=== PATIENT | female | born 1980 | race Caucasian/White ===

== ENCOUNTER 2022-03-03 11:50 | Inpatient (IN) | payer OTHER ==
[2022-03-03] MEDS ORDERED: CITRIC ACID/SODIUM CITRATE 30 ML UNIT-DOSE CUP PO ONE (13:07)
[2022-03-03] MEDS ORDERED: ELECTROLYTE-148 SOLN 1,000 ML IV SCH ×2 (13:15)
[2022-03-03 13:39] VITALS: BMI 23.5
[2022-03-03 14:09] LABS: BASO % 0.4 % (0-2.0); EOS % 0.8 % (0-4.5); HEMATOCRIT 33.9 % (32.4-45.2); MCH 30.7 pg (25.7-33.7); MCHC 35.4 g/dl (32.0-36.0); MEAN CELL VOLUME 86.7 fl (80-96); MONO % 6.9 % (3.8-10.2); NEUT % 75.9 % (42.8-82.8); PLATELET COUNT 212 10^3/uL (134-434); RBC 3.91 M/mm3 (3.60-5.2); RDW 13.9 % (11.6-15.6); WHITE BLOOD COUNT 9.2 K/mm3 (4.0-10.0)
[2022-03-03 14:15] LABS: INR 0.9 (0.83-1.09); PROTHROMBIN TIME (PATIENT) 10.3 SEC (9.7-13.0)
[2022-03-03 14:18] LABS: ACTIVATED PTT 24.9 SECONDS (25.2-36.5)
[2022-03-03 14:42] LABS: BLOOD UREA NITROGEN 10.9 mg/dL (7-18); CALCIUM 9.1 mg/dL (8.5-10.1); CREATININE 0.4 mg/dL (0.55-1.3)
[2022-03-03] MEDS ORDERED: ACETAMINOPHEN INJECTION 100 ML IVPB ONE (16:10)
[2022-03-03] MEDS ORDERED: OXYTOCIN 20 UNITS in 0.9% NS 20 UNIT/1,000 ML INFUS.BAG IV ONE (16:10)
[2022-03-03] MEDS ORDERED: ceFAZolin SODIUM 1 GM VIAL ONE (16:12)
[2022-03-03] MEDS ORDERED: PHENYLEPHRINE HCL 10 MG/1 ML SINGLE DOSE VIAL ONE (16:12)
[2022-03-03] MEDS ORDERED: ePHEDrine SULFATE 50 MG/1 ML AMPULE ONE (16:12)
[2022-03-03] MEDS ORDERED: OXYTOCIN 10 UNITS/ML VIAL ONE (16:37)
[2022-03-03] MEDS ORDERED: IBUPROFEN 600 MG TABLET (FP) PO PRN (16:40)
[2022-03-03] MEDS ORDERED: ACETAMINOPHEN 1000 MG/100 ML BAG IVPB PRN (16:40)
[2022-03-03] MEDS ORDERED: SENNOSIDES/DOCUSATE COMBO (SENNA PLUS) TABLET (UD) PO PRN (16:40)
[2022-03-03] MEDS ORDERED: IBUPROFEN 800 MG/8 ML IJ IVPB PRN (16:40)
[2022-03-03] MEDS ORDERED: ONDANSETRON 4 MG/2 ML VIAL IVPB PRN (16:40)
[2022-03-03] MEDS ORDERED: ACETAMINOPHEN 325 MG TABLET (FP) PO PRN (16:40)
[2022-03-03] MEDS ORDERED: oxyCODONE HCL 5 MG TABLET PO PRN (16:40)
[2022-03-03] MEDS ORDERED: WITCH HAZEL 50% (TUCKS) 40 PAD/JAR PAD TP PRN (16:40)
[2022-03-03] MEDS ORDERED: OXYTOCIN 20 UNITS in 0.9% NS 20 UNIT/1,000 ML INFUS.BAG IV SCH (16:45)
[2022-03-03] MEDS: IBUPROFEN 800 MG/8 ML IJ IVPB PRN (22:40)
[2022-03-03] MEDS: SIMETHICONE 80 MG TAB.CHEW (FP) PO PRN (22:40)
[2022-03-04] MEDS: ACETAMINOPHEN 1000 MG/100 ML BAG IVPB PRN ×2 (03:15→12:01)
[2022-03-04] MEDS: IBUPROFEN 800 MG/8 ML IJ IVPB PRN ×2 (06:34→15:12)
[2022-03-04 08:33] LABS: BASO % 0.3 % (0-2.0); EOS % 0.2 % (0-4.5); HEMOGLOBIN 10.8 GM/dL (10.7-15.3); LYMPH % 8.6 % (8-40); MCH 29.7 pg (25.7-33.7); MCHC 33.7 g/dl (32.0-36.0); MEAN CELL VOLUME 88.1 fl (80-96); MONO % 5.1 % (3.8-10.2); NEUT % 85.8 % (42.8-82.8); PLATELET COUNT 181 10^3/uL (134-434); RBC 3.63 M/mm3 (3.60-5.2); WHITE BLOOD COUNT 13.1 K/mm3 (4.0-10.0)
[2022-03-04] MEDS: SIMETHICONE 80 MG TAB.CHEW (FP) PO PRN ×2 (11:30→21:01)
[2022-03-04] MEDS ORDERED: IBUPROFEN 800 MG/8 ML IJ IVPB SCH (16:30)
[2022-03-04] MEDS ORDERED: BISACODYL 10 MG SUPP.RECT RC PRN (16:40)
[2022-03-04] MEDS: traMADol HCL 50 MG TABLET PO PRN (21:01)
[2022-03-05] MEDS: traMADol HCL 50 MG TABLET PO PRN ×2 (05:28→10:39)
[2022-03-05] MEDS: SIMETHICONE 80 MG TAB.CHEW (FP) PO PRN ×2 (05:28→10:44)
[2022-03-05 10:36] VITALS: BP 143/73; PULSE 107; TEMP 99
== END 2022-03-05 15:15 | disposition home or self-care (01) | DRG 540 ==
LOC: JLDR 11:50 → J3W 20:24
PROVIDERS: ADMIT Specialist; ATTEND Specialist
PROC: 10D00Z1 Extraction of Products of Conception, Low, Open Approach (ICD-10-PCS; principal; 2022-03-03)
DX: O41.03X0 Oligohydramnios, third trimester, not applicable or unspecified (principal); O36.5930 Maternal care for other known or suspected poor fetal growth, third trimester, not applicable or unspecified; O43.129 Velamentous insertion of umbilical cord, unspecified trimester; Z3A.36 36 weeks gestation of pregnancy; Z37.0 Single live birth
CPT/HCPCS: 36415; 80048; 85025; 85610; 85730; 86780; 86850; 86900; 86901; 88307-TC; C9803-CS; U0003; U0005